=== PATIENT | male | born 1965 | race American Indian/Alaskan Native ===

== ENCOUNTER 2017-08-08 11:05 | Day surgery (SDC) | payer MEDICARE ==
[~2017-08-08 11:05] MED LIST: ANCEF/STERILE WATER 2 GM/20 ML 2 GM/20 ML SYRINGE IV NR
--- NOTE | 2017-08-08 12:25 | Anesthesia Consultation ---
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
[2017-08-08] MEDS ORDERED: ZOFRAN IV PRN (12:26)
[2017-08-08] MEDS ORDERED: DILAUDID IV PRN (12:26)
--- NOTE | 2017-08-08 12:26 | Anesthesia Day of Surgery ---
Anesthesia Day of Surgery - Day of Surgery Patient H&P Reviewed: Yes Patient is NPO: Yes
[2017-08-08] MEDS ORDERED: LACTATED RINGERS 1,000 ML IV SCH (13:00)
--- NOTE | 2017-08-08 13:35 | Post Operative Note ---
Date of procedure: 08/08/17 Pre-op diagnosis: phimosis Post-op diagnosis: same Findings: as above Procedure: circ Anesthesia: GETA Surgeon: RICHY MERINO Estimated blood loss: minimal Pathology: list (foreskin) Specimen disposition: to lab Condition: stable Disposition: PACU
--- NOTE | 2017-08-08 13:37 | Discharge Summary ---
Short Stay Discharge Plan Activity: other (no sex no straining ) Weight Bearing Status: Full Weight Bearing Diet: low fat, low cholesterol, low salt, diabetic Wound: open to air (remove dressing 9 pm ) Special Instructions: other (neosporin to incision bid ) Durable Medical Equipment Needed Upon Discharge: other (ce in RR and when awake 24 hrs ) Follow up with: PEPE PADILLA MD [Primary Care Provider] - 7 Days RICHY MERINO MD [Staff Physician] - 14 Days
[2017-08-08] MEDS ORDERED: DIPRIVAN 10 MG/ML IV ONE (13:45)
[2017-08-08] MEDS ORDERED: MARCAINE 0.25% INFILTRATI ONE (13:49)
[2017-08-08] MEDS ORDERED: TRIPLE ANTIBIOTIC TP ONE ×2 (13:49→15:24)
[2017-08-08] MEDS ORDERED: XYLOCAINE MPF 2% ONE (14:10)
[2017-08-08] MEDS ORDERED: SUBLIMAZE ONE (14:11)
[2017-08-08] MEDS ORDERED: NACL 0.9% IR ONE (14:38)
[2017-08-08] MEDS: DILAUDID IV PRN ×4 (15:30→16:52)
[2017-08-08] MEDS ORDERED: DILAUDID ONE (15:38)
--- NOTE | 2017-08-08 15:49 | Post Anesthesia Evaluation ---
- Post Anesthesia Evaluation Patient Participated: Yes Airway Patent: Yes Stable Respiratory Function: Yes Nausea/Vomiting: No Temp > 96.8F: Yes Pain Manageable: Yes Adequeate Hydration: Yes Anesthesia Complications: No Block Receding Appropriately: Not Applicable
[2017-08-08] MEDS ORDERED: PERCOCET 5/325 PO PRN (17:00)
[2017-08-08 18:01] VITALS: BP 150/86
--- NOTE | 2017-08-08 18:55 | Operative Report ---
PREOPERATIVE DIAGNOSIS: Severe phimosis, balanitis. POSTOPERATIVE DIAGNOSIS: Severe phimosis, balanitis. PROCEDURE: Circumcision, sleeve and dorsal slit technique. SURGEON: Juan José Puckett MD ANESTHESIA: General. FINDINGS: The gentleman could not retract his foreskin. He has a history of sexually transmitted disease, HIV and diabetes, now presents for circumcision. DESCRIPTION OF PROCEDURE: The patient brought to the operating room and placed on operating table. Following the induction of anesthesia, placed in supine position, prepped and draped in usual sterile fashion. A circumferential incision made in the penile skin. The foreskin could not be retracted, so a dorsal slit was made and we used Betadine to clean the glans. The circumferential incision was made on the inner foreskin and these were connected dorsally. Large amount of excess inflamed skin was removed. At this point, the area was irrigated. Any small vessels were cauterized or tied with 3-0 Vicryl. Sutures were placed at 12, 3, 6, and 9 o'clock position. The frenulum was partially opened and was reconstructed with 4-0 chromic. At this point, after all the sutures were in place, a circumferential closure was carried out with 3-0 chromic. The patient tolerated the procedure well. No significant complication. Estimated blood loss less than 5 mL. Brought to recovery in stable condition. JOB# [id number]/JERARDO
== END 2017-08-08 17:52 | disposition home or self-care (01) ==
LOC: OR 11:05
PROVIDERS: ATTEND Urology
DX: N47.1 Phimosis (principal); N48.1 Balanitis; E11.9 Type 2 diabetes mellitus without complications; G51.0 Bell's palsy; I10 Essential (primary) hypertension; I69.951 Hemiplegia and hemiparesis following unspecified cerebrovascular disease affecting right dominant side; Z21 Asymptomatic human immunodeficiency virus [HIV] infection status; Z88.8 Allergy status to other drugs, medicaments and biological substances; Z90.49 Acquired absence of other specified parts of digestive tract
CPT/HCPCS: 54150; 82962; 84132; 88304; J0690; J1170; J2704; J3010; J7120; A6250